=== PATIENT | male | born 1945 | race Caucasian/White ===

== ENCOUNTER 2020-01-02 12:55 | Emergency (ER) | payer OTHER ==
[~2020-01-02] VITALS: Ht 165.1 cm; Wt 57.2 kg
== END 2020-01-02 21:17 | disposition home or self-care (01) ==
LOC: ER 12:55
DX: K29.60 Other gastritis without bleeding (principal); E86.0 Dehydration; R11.11 Vomiting without nausea

== ENCOUNTER 2020-01-12 15:22 | Emergency (ER) | payer OTHER ==
[~2020-01-12] VITALS: Ht 165.1 cm; Wt 57.6 kg
== END 2020-01-13 05:41 | disposition home or self-care (01) ==
LOC: ER 15:22
DX: E86.0 Dehydration (principal); R11.2 Nausea with vomiting, unspecified

== ENCOUNTER 2020-02-11 07:14 | Emergency (ER) | payer OTHER ==
[~2020-02-11] VITALS: Ht 165.1 cm; Wt 57.2 kg
[2020-02-11] MEDS ORDERED: KETO10TA2 PO (13:34)
[2020-02-11] MEDS ORDERED: LEVSIN/SL0.125 MG SL (13:34)
[2020-02-11] MEDS ORDERED: PEPCID AC20 MG PO (13:34)
== END 2020-02-11 13:50 | disposition home or self-care (01) ==
LOC: ER 07:14
DX: R10.13 Epigastric pain (principal); Z03.818 Encounter for observation for suspected exposure to other biological agents ruled out; R05 Cough; R11.2 Nausea with vomiting, unspecified